=== PATIENT | male | born 2000 | race Caucasian/White ===

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

== ENCOUNTER → 2021-11-16 14:20 | Outpatient (CLI) | payer BC, SELFPAY ==
[2021-11-16 13:25] LABS: Microscopic, Urine URINE MICROSCOPIC (MICROSCOPIC)
[2021-11-16 13:30] LABS: Basophils # 0.1 K/mm3 (0-0.2); Basophils % 1.2 % (0.1-2.0); Eosinophils # 0.1 K/mm3 (0.0-0.4); Eosinophils % 1.8 % (0.1-12.0); Hematocrit 41.3 % (42.0-52.0); Hemoglobin 13.9 g/dL (14.1-18.0); Lymphocytes # 2.2 K/mm3 (0.7-4.5); Lymphocytes % 38.3 % (10-50); Mean Corpuscular HGB Conc 33.8 g/dL (31.8-35.4); Mean Corpuscular Hemoglobin 30.5 pg (27.0-31.2); Mean Corpuscular Volume 90.3 fl (80-94); Monocytes # 0.5 K/mm3 (0.1-1.0); Monocytes % 8.2 % (1.7-9.3); Neutrophils # 2.9 K/mm3 (1.8-7.8); Neutrophils % 50.6 % (37.0-80.0); Platelet Count 309 K/mm3 (142-424); Red Blood Count 4.57 M/mm3 (4.60-6.20); Red Cell Distribution Width 12.6 % (11.5-17.5); White Blood Count 5.8 K/mm3 (4.5-13.0)
[2021-11-16 13:43] LABS: Alanine Aminotransferase 15 U/L (12-78); Albumin Level 4.6 g/dl (3.5-5.0); Albumin/Globulin Ratio 1.6 (1.1-1.8); Alkaline Phosphatase 75 U/L (38-126); Anion Gap 15.1 mEq/L (5-15); Aspartate Amino Transferase 26 U/L (17-59); Blood Urea Nitrogen 14 mg/dl (9-20); Calcium 9.1 mg/dl (8.4-10.2); Carbon Dioxide 27 mmol/L (22.0-30.0); Chloride 105 mmol/L (98-107); Estimated Glomerular Filt Rate 144 ml/min (>60); GFR (African American) 174 ML/MIN (>60); Globulin 2.9 g/dL (1.3-3.2); Glucose 63 mg/dl (74-100); Potassium 4.1 mmoL/L (3.5-5.1); Sodium 143 mmol/L (136-145); Total Protein,Serum 7.5 g/dl (6.3-8.2)
[2021-11-16 13:47] LABS: Appearance,Urine CLEAR (Clear); Bilirubin,Total < 0.1 mg/dl (0.2-1.3); Bilirubin,Urine Negative (Negative); Blood, Urine Negative (Negative); Color,Urine YELLOW (Yellow); Glucose,Urine (UA) Negative (Negative); Ketones,Urine Negative (Negative); Leukocyte Esterase,Urine Negative (Negative); Nitrate,Urine Negative (Negative); Protein,Urine Negative (Negative); Urobilinogen,Urine 0.2 EU/dl (0.2)
[2021-11-16 14:05] LABS: Amorphous Sediment,Urine 1+ /lpf; Bacteria,Urine 2+ /lpf; RBC,Urine Occasional #/hpf (0-3); Squamous Epithelial Cell,Urine Occasional #/hpf (0-5); WBC,Urine Occasional #/hpf (0-3)
[2021-11-17 08:15] LABS: HSV 1 IgG, Type Spec <0.91 index (0.00-0.90); HSV 2 IgG, Type Spec <0.91 index (0.00-0.90)
[2021-11-17 11:26] LABS: Rapid Plasma Reagin Ab Titer Non Reactive (NonRea<1:1)
[2021-11-17 22:07] LABS: Neisseria gonorrhoeae, NAA Negative (Negative)
[2021-11-20 22:51] LABS: Hep A Ab, IgM Negative
[2021-11-20 22:52] LABS: HIV Screen 4th Generation wRfx Non Reactive; Hepatitis C Antibody <0.1
== END ==
PROVIDERS: PCP Physician Assistant; Visit Provider Physician Assistant
DX: Z72.51 High risk heterosexual behavior (principal); Z76.89 Persons encountering health services in other specified circumstances; Z11.4 Encounter for screening for human immunodeficiency virus [HIV]
CPT/HCPCS: 80053; 80074; 81001; 85025; 86592; 86695; 86703; 86790; 87086; 87491; 87591; G0432

== ENCOUNTER → 2021-12-04 19:14 | Outpatient (CLI) | payer BC, SELFPAY ==
[2021-12-07 21:08] LABS: Neisseria gonorrhoeae, NAA Negative (Negative)
== END ==
PROVIDERS: PCP Physician Assistant; Visit Provider Physician Assistant
DX: Z86.19 Personal history of other infectious and parasitic diseases (principal)
CPT/HCPCS: 87491; 87591

== ENCOUNTER → 2023-03-07 11:52 | Outpatient (CLI) | payer BC, SELFPAY ==
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
== END ==
LOC: RAD 11:54
PROVIDERS: PCP Physician Assistant; Visit Provider Physician Assistant
DX: R07.9 Chest pain, unspecified (principal); F17.200 Nicotine dependence, unspecified, uncomplicated
CPT/HCPCS: 71046

== ENCOUNTER → 2023-03-17 13:21 | Outpatient (CLI) | payer BC, SELFPAY ==
--- NOTE | 2023-03-17 13:21 | CA_ITS ---
APPROVED REPORT EXAM: Comprehensive 2D, Doppler, and color-flow Echocardiogram Casting Wheel Operator: Terrie Morgan CRT Ht: 5 ft 5 in Wt: 148lbs BSA: 1.74 BP: 120/88 mmHg Indications: Murmur, Smoker 2D Dimensions LA Volume 28.00 mL LA Volume Index 16.09 mL/m2 (M/F) 16-34 M-Mode Dimensions RVDd 2.81 cm (0.9-2.6) LA Diam 3.12 cm (1.9-4.0) LVDd 4.92 cm (3.5-5.7) LVDs 3.42 cm (3.5-5.7) IVSd 1.14 cm (0.6-1.1) PWd 1.14 cm (0.6-1.1) EF (Teich) 57.80% FS 30.50% EDV (Teich) 113.90 mL TAPSE 1.74 (<1.7) ESV (Teich) 48.10 mL LV Diastology E Decel Time 190 (160-240 msec) E/A Ratio 1.6 MED A' 6.90 cm/s LAT A' 6.60 cm/s Aortic Valve AO Peak GR. 6.80 mmHg Mitral Valve MV E Max Arcadio. 104.0 (40-130 cm/s) MV A Velocity 64.0 (40-130 cm/s) E/A Ratio 1.62 MV PHT 56.0 ms Pulmonary Valve PV Peak Velocity 171.0 (50-150 cm/s) Tricuspid Valve TR P. Velocity 149.00 cm/s RAP Estimate 10.00 mmHg RVSP 18.90 mmHg Left Ventricle The left ventricle is normal size. The left ventricular systolic function is normal. The left ventricular ejection fraction is within the normal range. There is normal left ventricular wall thickness. There is normal LV segmental wall motion. The left ventricular diastolic function is normal. LVEF is 55%. Right Ventricle The right ventricle is normal size. The right ventricular systolic function is normal. Atria The left atrium size is normal. The right atrium size is normal. There is no Doppler evidence of interatrial shunt. Aortic Valve The aortic valve is normal in structure. The aortic valve is trileaflet. There is no aortic valvular stenosis. No aortic regurgitation is present. Mitral Valve The mitral valve is normal in structure. No evidence of mitral valve stenosis. Trace mitral regurgitation. Tricuspid Valve The tricuspid valve leaflets are thin and pliable. Trace tricuspid regurgitation. There is insufficient TR jet to estimate RVSP. Pulmonic Valve The pulmonary valve is normal in structure. Mild pulmonic regurgitation. Great Vessels The aortic root is normal in size. The ascending aorta is normal in size. IVC is normal in size and collapses >50% with inspiration. Pericardium There is no pericardial effusion. Other Information Study Quality: Adequate Conclusion Normal biventricular systolic function. No significant valvular stenosis or regurgitation. Electronically signed by : Anne Guzmán MD 03/23/2023 12:21:55
== END ==
LOC: RT 13:21
PROVIDERS: PCP Physician Assistant; Visit Provider Physician Assistant
DX: R01.1 Cardiac murmur, unspecified (principal)
CPT/HCPCS: 93306

== ENCOUNTER 2023-04-12 08:18 | Emergency (ER) | payer BC, SELFPAY ==
[2023-04-12 08:19] VITALS: BP 126/70; PULSE 98; RESP 16; TEMP 37.6; O2SAT 96; BMI 24.2
[2023-04-12 08:37] LABS: UTC Influenza A Antigen Negative (Negative); UTC Influenza B Antigen Negative (Negative)
--- NOTE | 2023-04-12 08:47 | EXP.UTC ---
Discharge Plan Disposition Patient Disposition: Home, Self-Care Condition: Good Prescriptions Prescriptions: New oseltamivir [Tamiflu] 75 mg capsule 75 mg PO BID Qty: 10 0RF methylprednisolone 4 mg Tablets,Dose Pack 4 mg PO DIRECTED 6 Days Qty: 21 0RF olnlqdwbukxadpz-egmopzsls-KJ [Bromfed DM] 2-30-10 mg/5 mL Syrup 5 ml PO Q6H PRN (Reason: Cough) Qty: 240 0RF No Action chlorhexidine gluconate 0.12 % mouthwash 15 ml PO TID Patient Comments: PLACE 15 ML IN MOUTH 3 TIMES PER DAY AFTER BRUSHING TEETH, SWISH IN MOUTH FOR 30 SECONDS THEN SPIT OUT. Referrals Follow up/Referrals: Lindsey Licona PA [Primary Care Provider] - See instructions Activity Restrictions/Add. Instructions Additional Instructions/Restrictions: Drink plenty of fluids. Take tylenol or ibuprofen for pain or fever. Take the medications as directed. Follow up with your regular doctor. GO TO THE ER FOR ANY WORSENING SYMPTOMS Clinical Impressions Clinical Impression: Influenza Instructions Patient Instructions: Influenza, DI for Influenza -- Adult, Oseltamivir Discharge ED Provider: Nik Gruber [facility] General Stated complaint: fever, cough, body aches Mode of Arrival: Ambulatory Source of Information: Patient Limitations: No Limitations Time Seen by Provider: 04/12/23 08:47 Description of Symptoms (Recalled from Triage Doc. by RN): Patient reports fever and body aches that started last night. HEENT Symptoms (Recalled from RN notes): Yes Resp Symptoms (Recalled from RN notes): No Skin Symptoms (Recalled from RN notes): No MS Symptoms (Recalled from RN notes): No Functional Status (Recalled from RN notes): wnl History of Present Illness Provider Complaint: He states that since last night he has had body aches, chills, fever, scratchy throat, nonproductive cough and malaise. His father currently has influenza and he has been with his father a lot for the past week or so. He denies any shortness of breath. Related Data Home Medications Medication Instructions Recorded Confirmed chlorhexidine gluconate 0.12 % 15 ml PO TID 03/03/23 03/07/23 mouthwash Previous Rx's Medication Instructions Recorded zuxzpfceqclbohj-vozgvdqmnhtbwlz-SD 5 ml PO Q6H PRN Cough #240 mL 04/12/23 2 mg-30 mg-10 mg/5 mL oral syrup (Bromfed DM) methylprednisolone 4 mg tablets in 4 mg PO DIRECTED 6 days #21 tabs 04/12/23 a dose pack oseltamivir 75 mg capsule (Tamiflu) 75 mg PO BID #10 caps 04/12/23 Allergies Allergy/AdvReac Type Severity Reaction Status Date / Time No Known Allergies Allergy Verified 03/07/23 11:08 Worker's Comp Is this a Worker's Comp case?: No PFSH PFS Disclaimer: The information contained in this section may have been updated after the patient was seen, as this information can be updated by other users. Social History Smoking Status: Light tobacco smoker tobacco type: e-cigarettes alcohol intake: never substance use type: denies use and marijuana current occupational status: other Travel in the last 8 weeks: None ROS Obtained: Yes All systems reviewed & no additional complaints except as documented Constitutional Constitutional: Reports chills and Reports fever(s) Eyes Eyes: Denies eye discharge ENT Ears, Nose, Mouth, and Throat: Reports as per HPI Cardiovascular Cardiovascular: Denies chest pain Respiratory Respiratory: Denies chest congestion and Reports cough Gastrointestinal Gastrointestingal: Reports nausea; Denies abdominal pain, constipation, cramping, diarrhea or vomiting Musculoskeletal Musculoskeletal: Denies arthralgias Integumentary/Breasts Skin/Breast: Denies rash Neurologic Neurologic: Denies paresthesias Physical Exam General General appearance: alert and in no apparent distress Head Head exam: atraumatic, normocephalic and normal inspection Eye Eye exam: Present normal appearance,
[2023-04-12 09:15] VITALS: BP 126/70; PULSE 98; RESP 16; TEMP 37.6; O2SAT 96
== END 2023-04-12 09:16 | disposition home or self-care (01) ==
PROVIDERS: Emergency Provider Nurse Practitioner Family; PCP Physician Assistant
DX: J10.1 Influenza due to other identified influenza virus with other respiratory manifestations (principal); R50.9 Fever, unspecified; R05.9 Cough, unspecified; R07.0 Pain in throat; R53.81 Other malaise; M79.18 Myalgia, other site; R11.0 Nausea; F17.290 Nicotine dependence, other tobacco product, uncomplicated
CPT/HCPCS: 87804; 99204; 99212; G0463

== ENCOUNTER 2023-06-29 14:17 | Outpatient (CLI) | payer BC, SELFPAY ==
[2023-06-29 14:40] LABS: Basophils % 0.8 % (0.1-2.0); Eosinophils # 0.1 K/mm3 (0.0-0.4); Eosinophils % 1.3 % (0.1-12.0); Hemoglobin 15.3 g/dL (14.1-18.0); Lymphocytes # 1.8 K/mm3 (0.7-4.5); Lymphocytes % 38.9 % (10-50); Mean Corpuscular HGB Conc 33.2 g/dL (31.8-35.4); Mean Corpuscular Hemoglobin 31.2 pg (27.0-31.2); Mean Corpuscular Volume 93.8 fl (80-94); Mean Platelet Volume 7.6 fl (7.4-10.4); Monocytes # 0.4 K/mm3 (0.1-1.0); Monocytes % 8.4 % (1.7-9.3); Neutrophils # 2.3 K/mm3 (1.8-7.8); Neutrophils % 50.7 % (37.0-80.0); Platelet Count 280 K/mm3 (142-424); Red Cell Distribution Width 12.6 % (11.5-17.5); White Blood Count 4.6 K/mm3 (4.8-10.8)
[2023-06-29 15:20] LABS: Alanine Aminotransferase 25 U/L (12-78); Albumin/Globulin Ratio 1.9 (1.1-1.8); Alkaline Phosphatase 67 U/L (38-126); Anion Gap 13.2 mEq/L (5-15); Aspartate Amino Transferase 53 U/L (17-59); Bilirubin,Total 0.7 mg/dl (0.2-1.3); Blood Urea Nitrogen 11 mg/dl (9-20); Calcium 9.5 mg/dl (8.4-10.2); Carbon Dioxide 29 mmol/L (22.0-30.0); Chloride 102 mmol/L (98-107); Cholesterol 145 mg/dl (140-200); Estimated Glomerular Filt Rate 122 ml/min (>60); GFR (African American) 148 ML/MIN (>60); Globulin 2.6 g/dL (1.3-3.2); Glucose 89 mg/dl (74-100); HDL Cholesterol 36 mg/dl (40-60); Potassium 4.2 mmoL/L (3.5-5.1); Sodium 140 mmol/L (136-145); Total Protein,Serum 7.6 g/dl (6.3-8.2); Triglycerides 77 mg/dl (30-150); VLDL Cholesterol 15 mg/dL (0-40)
[2023-06-29 15:30] LABS: Direct LDL Cholesterol 84.64 mg/dL (100-129)
[2023-06-29 15:37] LABS: 25-OH Vitamin D, Total 34.1 ng/mL (30-100)
[2023-06-29 15:49] LABS: Thyroid Stimulating Hormone 0.61 uIU/mL (0.465-4.68)
[2023-06-29 16:08] LABS: Vitamin B12 889 pg/mL (239-931)
== END 2023-06-29 23:59 ==
LOC: LAB 14:19
PROVIDERS: PCP Physician Assistant; Visit Provider Physician Assistant
DX: R40.0 Somnolence (principal); D72.818 Other decreased white blood cell count
CPT/HCPCS: 36415; 80053; 80061; 82306; 82607; 84443; 85025